=== PATIENT | female | born 1950 | race Caucasian/White ===

== ENCOUNTER → 2017-04-07 | Outpatient (CLI) | payer MEDICARE ==
[~2017-04-07] MED LIST: ADVA500A INH; ASPI1TAB57 PO; CARD180C5 PO; CETI10CA3 PO; CITA40TA4 PO; FLUT50SP EACH NARE; HYDR25TA5 PO; IPRAAER INH; LANTINJ SQ; LATA0.002 EACH EYE; LEVO.125 PO; LORA0.5T PO; LOSA50TA PO; METF500T4 PO; MONT10TA4 PO; SIMV20TA PO
--- NOTE | 2017-04-07 10:23 | ECHRPT ---
Indication: ATYPICAL CHEST PAIN/ MURMUR CONCLUSIONS Normal left ventricular size. Wall thickness is normal. The left ventricular systolic function is normal with an estimated ejection fraction in the range of 60-65%. BP: / HR: Rhythm: MEASUREMENTS (Male / Female) Normal Values Technical Quality:Good 2D ECHO LV Diastolic Diameter PLAX 4.2 cm 4.2 - 5.9 / 3.9 - 5.3 cm LV Systolic Diameter PLAX 3.0 cm IVS Diastolic Thickness 0.9 cm 0.6 - 1.0 / 0.6 - 0.9 cm LVPW Diastolic Thickness 0.6 cm 0.6 - 1.0 / 0.6 - 0.9 cm LV Relative Wall Thickness 0.4 RV Internal Dim ED PLAX 1.8 cm LA Systolic Diameter LX 3.5 cm 3.0 - 4.0 / 2.7 - 3.8 cm DOPPLER Mitral E Point Velocity 62.2 cm/s Mitral A Point Velocity 85.9 cm/s Mitral E to A Ratio 0.7 TR Peak Velocity 155.0 cm/s TR Peak Gradient 9.6 mmHg FINDINGS LEFT VENTRICLE Normal left ventricular size. Wall thickness is normal. The left ventricular systolic function is normal with an estimated ejection fraction in the range of 60-65%. RIGHT VENTRICLE Normal right ventricular size and systolic function. LEFT ATRIUM The left atrial size is normal. RIGHT ATRIUM The right atrial size is normal. ATRIAL SEPTUM Normal atrial septal thickness without atrial level shunting by limited color doppler interrogation. AORTA The aortic root and proximal ascending aorta are normal in size on limited imaging. MITRAL VALVE Structurally normal mitral valve. No mitral valve stenosis or regurgitation. AORTIC VALVE Trileaflet aortic valve. No aortic valve stenosis or regurgitation. TRICUSPID VALVE Structurally normal tricuspid valve. No tricuspid valve stenosis or regurgitation. PULMONARY VALVE The pulmonary valve is not well visualized. VESSELS The inferior vena cava is normal in size. PERICARDIUM No pericardial effusion. Jose Mckeon MD, FACC (Electronically Signed) Final Date:07 April 2017 10:22
--- NOTE | 2017-04-07 14:51 | EKG ---
Date Performed: 04/07/2017 Time Performed: 09:33:14 PTAGE: 67 years EKG: Sinus rhythm . Septal T wave changes are nonspecific Borderline ECG NO PREVIOUS TRACING DOCTOR: Albert Guan Interpretating Date/Time 04/07/2017 14:49:55
== END ==
LOC: HECH 07:45
PROVIDERS: ATTEND Family Medicine
DX: R07.89 Other chest pain (principal)
CPT/HCPCS: 93005; 93306

== ENCOUNTER → 2017-05-31 | Outpatient (CLI) | payer MEDICARE ==
[~2017-05-31] MED LIST changes: +NITR1SUB3 SL
[2017-05-31 17:18] LABS: BICARBONATE 30.5 MEQ/L (21.0-32.0); CREATININE 0.92 MG/DL (0.50-1.00)
== END ==
LOC: CLAB 16:12
PROVIDERS: ATTEND Family Medicine
DX: R07.89 Other chest pain (principal)
CPT/HCPCS: 36415; 80048

== ENCOUNTER 2017-06-01 12:51 | Day surgery (SDC) | payer MEDICARE ==
[2017-06-01] MEDS ORDERED: IOHEXOL 350 MG/ML 50 ML BTL (for Cath Lab) OTHER ONE (12:52)
[2017-06-01] MEDS ORDERED: HEPARIN-NS/PF FLUSH BAG 2,000 ML IV FLUSH ONE (13:25)
[2017-06-01 13:40] LABS: AUTOMATED NEUTROPHIL # 4.2 TH/MM3 (1.8-7.7); BASOPHIL # 0.1 TH/MM3 (0-0.2); BASOPHIL % 1.4 % (0.0-2.0); EOSINOPHIL # 0.3 TH/MM3 (0-0.4); EOSINOPHIL % 4.6 % (0.0-4.0); HEMATOCRIT 38.7 % (35.0-46.0); HEMOGLOBIN 13.7 GM/DL (11.6-15.3); LYMPH % 23.7 % (9.0-44.0); LYMPHOCYTE # 1.6 TH/MM3 (1.0-4.8); MEAN CELL VOLUME 87.1 FL (80.0-100.0); MEAN CORPUSCULAR HEMOGLOBIN 30.9 PG (27.0-34.0); MEAN CORPUSCULAR HGB CONC 35.5 % (32.0-36.0); MEAN PLATELET VOLUME 8.2 FL (7.0-11.0); MONOCYTE # 0.7 TH/MM3 (0-0.9); NEUT % 60.3 % (16.0-70.0); PLATELET COUNT 326 TH/MM3 (150-450); RED BLOOD COUNT 4.44 MIL/MM3 (4.00-5.30); RED CELL DISTRIBUTION WIDTH 12.9 % (11.6-17.2); WHITE BLOOD COUNT 6.9 TH/MM3 (4.0-11.0)
[2017-06-01] MEDS ORDERED: MIDAZOLAM HCL 2 MG/2 ML VIAL ONE (13:45)
[2017-06-01] MEDS ORDERED: SIMV20TA PO (13:47)
[2017-06-01 13:49] LABS: PROTHROMBIN TIME - PATIENT 10.2 SEC (9.8-11.6)
[2017-06-01 14:05] LABS: BICARBONATE 30.9 MEQ/L (21.0-32.0); CALCIUM 9.2 MG/DL (8.5-10.1); CREATININE 0.84 MG/DL (0.50-1.00)
--- NOTE | 2017-06-01 14:51 | CATHPROC ---
[facility] HIS Report Study Information Study Number Admission Scheduled Start Study Start [id number] Jun 01 2017 12:51PM 06/01/2017 Jun 01 2017 1:30PM [place] [facility] Cardiac Catheterization Admit Source Facility Department Other [facility] - Insurance Examining Clerk Physician and Clinical Staff Initial MD Muniz, Celia [employer] Laborer Ke RN, Frank RecordEkaterina Mohr ,RT(R) Scrub Madeline Ramachandran,RT(R) Procedures Performed Procedure Location (Site) Vessel Name Angiogram LV LV Ventricle Coronary Angiograms LCA Left Coronary Coronary Angiograms RCA Right Coronary L Heart Cath Equipment Time Dial Polisher Description Size Mfg Part Number Used/Scraped TRANSDUCER, TRUWAVE [id number] 13:35 [employer] * Used W/STOCKCOCK *[id number] INTRODUCER SET, 13:35 [employer] FR 5 [id number] *[id number] Used MICROPUNCTURE, STIFFENED 538-476 *[id number] 538-420 *[id number] 538-453S *[id number] 13:35 [employer] INDUSTRIES PACK, CCL CUSTOM * Used *[id number] 13:35 [employer] PACER PEN, SKIN DUAL W/ RULER * Used *[id number] 13:35 [employer] WIRE, 3MMJ .035 180CM 180CM Used *[id number] PROBE COVER, STERILE [id number] 13:35 [employer] * Used ULTRASOUND W/ GEL *[id number] 13:35 NAMIC MANIFOLD, 4 PORT * Used *[id number] 13:35 [employer]ED OMNIPAQUE, 350 MG, 150ML 150ML [id number] Used [id number] 13:35 [employer] MEDICAL BLANKET,WARM AIR CCL * Used *[id number] 13:35 [employer] MEDICAL SHEATH, FR4 TERUMO (10CM) FR 4 Used *[id number] History: Allergies Allergy Reaction lisinopril unknown penicillin G rash atorvastatin cramps latex Hives History: Risk Factors Family History of Hypertension Dyslipidemia Previous OK Previous Heart Failure Premature CAD Yes Yes No No No Prior Valve Prior PCI Prior CABG Surgery No No No Cerebrovascular Peripheral Artery Chronic Lung On Dialysis Diabetes Diabetes Therapy Disease Disease Disease No Yes No No Yes Oral History: Symptoms/Diagnosis Selection Items Chest pain History: Stress Tests Stress or Imaging Studies Performed Yes History: Other Current Smoker No Labs Hgb (g/dl) Hct (%) RBC (MIL/MM3) WBC (l/cumm) Platelets (thousands) 11.60-17.00 35.00-51.00 4.00-5.90 4.00-11.00 150.00-450.00 13.7 38.7 4.4 6.9 326 CPK-MB (ng/ML) 0.50-3.60 Not Drawn Medication Medication Total Dose (Bolus/Oral) Medication Total Dosage/Unit 1% XYLOCAINE 20 mL FENTANYL 50 mcg VERSED 2 mg Medications (Bolus/Oral) Medication Time Given Dosage/Unit Administered By Reason FENTANYL 06/01/2017 2:09:00 PM 50 mcg Ke CROOK, Frank 50 mcg FENTANYL given in lab by Frank Dempsey RN in Left Antecubital via Peripheral IV. Ordered by Celia Ryan. VERSED 06/01/2017 2:10:00 PM 2 mg Ke CROOK, Frank 2 mg VERSED given in lab by Frank Dempsey RN in Left Antecubital via Peripheral IV. Ordered by Celia Muniz. 1% XYLOCAINE 06/01/2017 2:17:54 PM 20 mL Celia Muniz 20 mL 1% XYLOCAINE given in lab by Celia Muniz in Right Groin via Subcutaneous. Ordered by Celia Hooks. Medication (Drip) Medication Time Given Dosage/Unit Concentration/Unit Diluent (ml) Solution IV Solutions 06/01/2017 1:30:39 PM 50 mL (IV) NaCl .9 Patient arrived on IV Solutions in Left Antecubital via Peripheral IV. Pump/Drip Flow using NaCl .9. Initial Case Assessment Cardiovascular HR NIBP Chest Pain 90 167/79 3 Edema Present Skin color Skin None Normal Warm Dry Circulatory - Right Pulses Dorsalis Pedis Posterior Tibial Femoral 1 1 3 Scale (0,1,2,3,4,d) Circulatory - Left Pulses Dorsalis Pedis Posterior Tibial Femoral 1 3 Scale (0,1,2,3,4,d) Neurological State Oriented to time-place- Alert Moves all extremities person Respiration - General Respiration Rate SpO2 (%) (B/min) 11 96 Final Case Assessment Cardiovascular HR NIBP Chest Pain 76 149/63 3 Edema Present Skin color Skin None Normal Warm Dry Circulatory - Right Pulses Dorsalis Pedis Posterior Tibial Femoral 1 1 3 Scale (0,1,2,3,4,d) Circulatory - Left Pulses Dorsalis Pedis Posterior Tibial Femoral 1 3 Scale (0,1,2,3,4,d) Neurological State Oriented to time-place- Alert Moves all extremities person Respiration - General Respiration Rate SpO2 (%) (B/min) 11 96 Chronological Log Time Study Chronological Log 13:30:02 Patient arrived via Bed. 13:30:02 Patient Name, D.O.B, / Armband Verified By R.N. 13:30:03 Consent signed by the physician and the patient and verified by the Insurance Examining Clerk staff. Verbal Stimulation=2 Physical Stimulation=2 Airway=2 Respiration=~RESPIRATION~ TOTAL=8. (0=abse nt, 1=limited, 13:30:13 2=present) 13:30:25 Patient has been NPO for Less than 6Hrs. 13:30:25 Skin Breakdown- none per patient 13:30:26 Patient Warmer Placed on the Table. 13:30:34 Osorio Prominences Protected 13:30:37 A # 20 IV was noted in the Antecubital (left). Grade = 0 13:30:39 Patient arrived on IV Solutions in Left Antecubital via Peripheral IV. Pump/Drip Flow using NaCl .9. 13:30:40 History and physical on the chart or being dictated. Assessment: Initial Case, HR=90 BPM, DVNM=793/79 mmhg, Chest Pain=3, Edema=None, Color=Normal, Skin = Warm, Dry Right Pulses: Handy Ped=1, Post Tib=1, Femoral=3 13:30:41 Left Pulses: Handy Ped=1, Femoral=3 Neurological: State=Alert, Ox3, MAHONEY Respiration: Resp=11 B/min, SpO2=96 % Vitals capture started with the following parameters, Patient=Adult, Interval=5 min, Initial Pr insobe=973 mmHg, 13:36:51 Deflation Rate=5 mmHg, Cuff placed on Left Arm 13:38:09 HR=76 bpm, HDKM=950/79 mmhg, SpO2=96.0 %, Resp=20 B/min, Pain=3, Sari=2, Nelson=2 13:42:23 HR=75 bpm, XNCM=240/85 mmhg, SpO2=97.0 %, Resp=8 B/min, Sari=2, Nelson=2 13:42:29 Bilateral groins prepped with 2% chlorhexidine, and draped after a 3 minute waiting time. 13:46:02 Reference ECG taken 13:48:13 HR=80 bpm, XQGG=634/71 mmhg, SpO2=97.0 %, Resp=13 B/min, Pain=3, Sari=6, Nelson=2 13:48:27 Pressure channel 1 zeroed. 13:52:39 HR=82 bpm, KKEQ=666/73 mmhg, SpO2=98.0 %, Resp=9 B/min, Pain=3, Sari=6, Nelson=2 13:55:00 MD paged 13:57:32 HR=76 bpm, JLTC=359/80 mmhg, SpO2=96.0 %, Resp=10 B/min, Pain=3, Sari=6, Nelson=2 14:02:35 HR=79 bpm, FTXD=822/73 mmhg, SpO2=97.0 %, Resp=13 B/min, Pain=3, Sari=6, Nelson=2 14:07:38 HR=77 bpm, IDFL=908/75 mmhg, SpO2=96.0 %, Resp=11 B/min, Pain=3, Sari=6, Nelson=2 14:09:00 50 mcg FENTANYL given in lab by Frank Dempsey RN in Left Antecubital via Peripheral IV. Orde red by Celia Muniz. 14:10:00 2 mg VERSED given in lab by Frank Dempsey RN in Left Antecubital via Peripheral IV. Ordered by Celia Muniz. 14:12:18 MD arrived. 14:12:37 HR=77 bpm, ELVZ=669/74 mmhg, SpO2=76.0 %, Resp=8 B/min, Pain=3, Sari=6, Nelson=2 Time Out. Correct patient, correct procedure, correct physician, power injector loaded with con trast with surgical team 14:16:16 present. Time Out Concurred by MD and individual staff in procedure. 14:16:52 Case Start 14:17:28 HR=73 bpm, AZBX=509/76 mmhg, SpO2=97.0 %, Resp=18 B/min, Pain=3, Sari=6, Nelson=2 20 mL 1% XYLOCAINE given in lab by Celia Muniz in Right Groin via Subcutaneous. Ordered by Cristy, 14:17:54 Celia. 14:18:44 Access site was Right Femoral Artery. A INTRODUCER SET, MICROPUNCTURE, STIFFENED FR 5 was advanced into the Fem Art (right) using the 14:18:55 Percutaneous technique. A SHEATH, FR4 TERUMO (10CM) FR 4 was exchanged in the Fem Art (right). This was necessary in or katie to 14:19:41 accomodate a larger catheter. A JL 4.0 INFINITI CATHETER FR 4 was advanced over a wire. OMNIPAQUE, 350 MG, 150ML 150ML was us ed for 14:20:49 injections. 14:22:07 The LCA was injected and visualized at various angles. OMNIPAQUE, 350 MG, 150ML 150ML used . 14:23:08 Catheter was removed 14:23:12 HR=68 bpm, KZRC=825/69 mmhg, SpO2=97.0 %, Resp=15 B/min, Pain=3, Sari=6, Nelson=2 A 3DRC INFINITI CATHETER FR 4 was advanced over a wire. OMNIPAQUE, 350 MG, 150ML 150ML was used for 14:23:12 injections. 14:23:49 The RCA was injected and visualized at various angles. OMNIPAQUE, 350 MG, 150ML 150ML used . 14:24:57 Catheter was removed A PIGTAIL ANG. INFINITI CATHETER FR 4 was advanced over a wire. OMNIPAQUE, 350 MG, 150ML 150ML was used 14:25:28 for injections. Recorded Pressure: LV, HR=77, Condition=Condition 1 14:27:03 (Left Ventricle) LV 157/2/6 14:27:42 HR=84 bpm, TRJT=128/61 mmhg, SpO2=96.0 %, Resp=25 B/min, Pain=3, Sari=6, Nelson=2 14:27:58 The LV was injected at 8 cc/sec for a total of 32. OMNIPAQUE, 350 MG, 150ML 150ML used. Recorded Pressure: LV, Ao, HR=79, Condition=Condition 1 14:28:57 (Left Ventricle) LV 167/4/14, (Aorta) Ao 171/73/119 14:30:00 Case End 14:32:37 HR=76 bpm, JUKI=164/63 mmhg, SpO2=97.0 %, Resp=27 B/min, Pain=3, Sari=6, Nelson=2 Assessment: Final Case, HR=76 BPM, KQOE=560/63 mmhg, Chest Pain=3, Edema=None, Color=Normal, S kin = Warm, Dry Right Pulses: Handy Ped=1, Post Tib=1, Femoral=3 14:33:29 Left Pulses: Handy Ped=1, Femoral=3 Neurological: State=Alert, Ox3, MAHONEY Respiration: Resp=11 B/min, SpO2=96 % 14:33:40 Catheter(s) removed without difficulty 14:33:43 Sheath removed; pressure applied to access site. 14:33:50 Sterile dressing applied to site 14:33:50 No case complications noted. 14:33:52 Cine recording checked. 14:33:54 Bedside Report will be given. 14:33:58 Contrast Scanned 14:34:00 A Left Heart Cath was performed. 14:37:38 HR=72 bpm, SVKD=291/72 mmhg, SpO2=96.0 %, Resp=10 B/min, Pain=3, Sari=6, Nelson=2 14:43:18 HR=72 bpm, VLSY=217/77 mmhg, SpO2=96.0 %, Resp=18 B/min, Pain=3, Sari=6, Nelson=2 14:47:59 Vitals capture stopped. 14:50:59 Patient moved to [facility] End Study - Contrast Media Used In Study Contrast Total Opened (mL) Total Used (mL) Total Wasted (mL) Omnipaque 50 50 0 End Study - Radiation Exposure Fluoro Time (minutes) 1.8 End Study - Sheaths Sheaths Pulled By Sheath Hold Time (min) Madeline Ramachandran 15 End Study - Patient Disposition Complications Transferred To Interventional Outcome No Insurance Examining Clerk Holding No attempt made
--- NOTE | 2017-06-02 06:52 | MA ---
cc: GREGG SOTELO,CELIA Garcia M.D. DATE 06/01/2017 PROCEDURE PERFORMED Cardiac catheterization INDICATIONS FOR CATHETERIZATION Unstable angina. The patient presented to the office with left arm pain also failed exercise stress test with chest pain needing nitroglycerin following the stress test. CONSENT A fully informed consent was obtained prior to the procedure. The risks of , bleeding, myocardial infarction, perforation, aspiration, foreseen and unforeseen complications were reviewed. The patient fully appeared to understand the risks. PROCEDURAL STATEMENT The patient was prepped and draped in the usual manner. The right femoral artery was entered using a micropuncture technique via the 4-Romanian sheath, left and right coronary catheters were used to intubate the left and right coronaries. A pigtail catheter left ventricle. Multiple angiographic views were carried out. At the end of the catheterization procedure, all catheters and sheaths were removed. Manual pressure was applied until good hemostasis was achieved and the patient returned to her room in stable condition. FINDINGS HEMODYNAMIC RESULTS The aortic pressure was 171/72 with a mean of 119. The left ventricular pressure was 167 with a left ventricular pressure of 14. There was no evidence of significant gradient on pullback across the LV outflow tract and aortic valve. LEFT VENTRICULOGRAM The overall left ejection fraction was 60%. No evidence of significant mitral regurgitation or mural thrombus. CORONARIES The left main is free of significant disease. The left anterior descending artery is a large artery. It is fairly tortuous. It has a small to medium first diagonal branch and a small second diagonal branch free of significant disease. The circumflex artery is a medium-sized vessel with a large first obtuse marginal branch that is tortuous, but free of significant disease. The right coronary artery is a dominant artery with a large posterior descending artery. There is evidence of mild diffuse 25-30% disease in the proximal to midvessel. The right coronary artery entered in a large posterior descending artery that is tortuous and also has some very mild diffuse thickening, but no significant stenosis. The posterolateral branch was very small and free of significant disease. CONCLUSION Very minimal intimal thickening, normal LV function. The cause of the patient's left-sided chest pain is unclear, possibly musculoskeletal. Celia Muniz MD, FRCP,[facility] LINDAJ/KENYATTA /2:38 PM /6:27 AM
== END 2017-06-01 18:45 | disposition home or self-care (01) ==
LOC: HDOC 12:51 → HDIC 12:52 → HDOC 18:45
PROVIDERS: ATTEND Internal Medicine Cardiovascular Disease
DX: R07.9 Chest pain, unspecified (principal); M79.602 Pain in left arm
CPT/HCPCS: 80048; 85025; 85610; 85730; 93458; 99152; 99153; C1769; C1893; J1644; J2250; J3010; Q9967

== ENCOUNTER → 2017-06-09 | Outpatient (CLI) | payer MEDICARE ==
--- NOTE | 2017-06-11 08:41 | RSPPFT ---
DATE OF PROCEDURE: 06/09/17 COMMENTS: Spirometry with FVC of 2.0 predicted 2.8, FEV1 of 1.5 predicted 2.2, FEV1/FVC ratio at 78% predicted 82%. Lung volumes are basically within the predicted range as well as the DLCO. IMPRESSION: On the basis of the above, patient has flow values, lung volumes and DLCO are within the predicted range.
== END ==
LOC: HRSP 12:33
PROVIDERS: ATTEND Family Medicine
DX: J44.9 Chronic obstructive pulmonary disease, unspecified (principal)
CPT/HCPCS: 94060; 94726; 94729